=== PATIENT | female | born 1980 | race Caucasian/White ===

== ENCOUNTER 2018-07-12 20:22 | Observation (INO) ==
[2018-07-12] MEDS ORDERED: MAGNESIUM SULFATE IN WATER 50 ML IV ONE (20:31)
[2018-07-12] MEDS ORDERED: ALBUTEROL SULFATE/IPRATROPIUM 3 ML NEBU IH ONE (20:32)
--- NOTE | 2018-07-12 20:40 | ERNOTE ---
Dyspnea - Date Date of Service: 07/12/18 - General Presenting Symptoms: shortness of breath, wheezing Time Seen by Provider: 07/12/18 20:25 Source: patient - Immun/Allergies/Home Medications Immunizations: IMMUNIZATION HX Immunizations Up to Date No History of Influenza Vaccine No Hx Pneumococcal Vaccination No Allergies/Adverse Reactions: Allergies No Known Allergies Allergy (Verified 07/12/18 10:49) Home Medications: HOME MEDICATIONS Acetaminophen [Tylenol] 650 mg PO TID 06/01/18 [Last Taken Unknown] Cetirizine HCl [Zyrtec] 10 mg PO DAILY 06/01/18 [Last Taken Unknown] Levothyroxine Sodium [Synthroid] 25 mcg PO DAILY 06/01/18 [Last Taken Unknown] Albuterol Sulfate [Albuterol Sulfate 0.63 MG/3ML] 0.63 mg INHALATION Q4H PRN 07/12/18 [Last Taken Unknown] Azithromycin [Zithromax] 500 mg PO NOW #6 tab 07/12/18 [Last Taken Unknown] predniSONE [Prednisone] 50 mg PO DAILY 5 Days #5 tab 07/12/18 [Last Taken Unknown] - History of Present Illness Narrative: This is a 38-year-old female who presents to the emergency department for the second time today. Patient reports that she has a history of allergy induced asthma which started roughly 9 years ago. Is never had intubations. She says "I am allergic to everything except pollen and cats. "Patient went into a walk- in clinic this morning with coughing and difficulty breathing. Was found to be very tight and given steroids as well as breathing treatments. Was not getting better so was sent to the ER where she had an x-ray. She was sent home because she was feeling little bit better. Within an hour of getting home she started feeling tight again. No fever. No sputum production. No nausea or vomiting. No other complaints. She does have a little bit of chest tightness and discomfort from coughing. No pleuritic pain. No palpitations. Never felt this bad. No other complaints Review of Systems - Review of Systems Constitutional: Present: no symptoms reported EYE: Present: no symptoms reported ENT: Present: no symptoms reported Respiratory: Present: shortness of breath, cough, wheezing Cardiology: Present: no symptoms reported Gastrointestinal/Abdominal: Present: no symptoms reported Genitourinary: Present: no symptoms reported Musculoskeletal: Present: no symptoms reported Skin: Present: no symptoms reported Neurological: Present: no symptoms reported Endocrine: Present: no symptoms reported Hematologic/Lymphatic: Present: no symptoms reported Psych: Present: no symptoms reported All Other Systems: All systems neg except as marked Medical History (Updated 07/12/18 @ 20:52 by Lorenza Jimenez RN) H/O: hysterectomy [place] teeth extracted Asthma Surgical History: Surgical History (Updated 07/12/18 @ 20:52 by Lorenza Jimenez RN) History of appendectomy History of esophagogastroduodenoscopy (EGD) Hx of foot surgery L in 2018 Family History: Family History (Last Updated 07/12/18 @ 20:51 by Lorenza Jimenez RN) Mother Asthma Diabetes Hyperlipemia Hypertension Father Hypertension Hyperlipemia Social History: Preferred Language Algerian Smoking Status Never smoker Abuse History No History of abuse Psych History No pertinent hx (Last Updated 07/12/18 @ 12:12 by Ya Palmer DNP) No Social History Section defined Physical Exam - Physical Exam General Appearance: Present: wd/wn, alert, no apparent distress, other - Able to speak in full sentences Head Exam: Present: normal inspection, no evidence of injury Eye Exam: Normal inspection: bilateral, PERRL: bilateral Ears, Nose, Throat: Present: normal ENT inspection, normal pharynx Neck: Present: normal inspection Respiratory: Present: no respiratory distress, other - Diffuse wheezing, prolonged expiratory phase, occasional dry bronchitic cough. Wheezes are throughout Cardiovascular/Chest: Present: regular rate, rhythm, no murmur, normal peripheral pulses Gastrointestinal/Abdominal: Present: normal bowel sounds, nontender, nondistended, soft Back Exam: Present: normal inspection, no CVA tenderness Extremity Exam: Present: normal inspection, non-tender, normal range of motion, no edema Neurological Exam: Present: alert, oriented, normal mood/affect, no motor/sensory deficits Skin Exam: Present: normal color, warm/dry Lymphatic Exam: Present: no adenopathy Progress - Results and Orders Patient's Lab Results:: I have reviewed the patient's lab results. - Vital Signs Patient's Vital Signs:: I have reviewed the patient's vital signs. Plan - Plan Plan: This is a 38-year-old female with her second visit to the ER in the third visit to healthcare provider today who continues to have wheezing and dyspnea. Her steroids have not had 12 hours to work. She is still wheezing quite a bit although she is not significantly hypoxic. She is able to speak in full sentences. I think observing her in the hospital overnight would be appropriate. Going to continue on the steroids. First dose for next dose will be tomorrow. I am also to give some magnesium. I am going to perform a flu swab and a couple of basic labs. I have spoken to the hospital doctor about admitting overnight. Departure Clinical Impression: Asthma exacerbation Qualifiers: Asthma severity: moderate Asthma persistence: unspecified Qualified Code(s): J45.901 - Unspecified asthma with (acute) exacerbation - Departure Disposition: Still a patient Condition: Good
[2018-07-12] MEDS ORDERED: ALBUTEROL SULFATE/IPRATROPIUM 3 ML NEBU IH SCH (20:45)
[2018-07-12 20:47] LABS: Hematocrit 41.4 % (37.0-47.0); Hemoglobin 13.8 gm/dL (12.5-16.0); Mean Cell Volume 92.8 fl (78-100); Mean Corpuscular Hemoglobin 30.9 pg (27-31); Mean Corpuscular Hgb Conc 33.3 g/dl (32-36); Mean Platelet Volume 10.3 fl (8-12.5); Neutrophil # 6.4 K/mm3 (1.3-6.0); Neutrophil % 93.6 % (42-75.0); Platelet Count 274 K/mm3 (150-450); Red Blood Count 4.46 M/mm3 (4.2-5.4); Red Cell Distribution Width 12.5 % (11.5-14.0); White Blood Count 6.9 K/mm3 (4.0-10.5)
[2018-07-12 21:01] LABS: Albumin * 4.1 gm/dl (3.4-5.0); Anion Gap 19.3 mmol/L (6.8-13.8); BUN/Creatinine Ratio 13.4 (9.0-21.6); Bilirubin, Total 0.4 mg/dL (0.0-1.1); Ca. Corrected For Albumin 8.9 mg/dL (8.4-10.2); Calcium * 9.3 mg/dL (7.9-10.9); Carbon Dioxide 18.4 mmol/L (24-32.6); Potassium 3.7 mmol/L (3.4-4.6); Total Protein 7.7 gm/dL (6.2-8.2)
[2018-07-12] MEDS ORDERED: MAGNESIUM SULFATE 4 MEQ/ML VIAL IV ONE (21:20)
[2018-07-12] MEDS ORDERED: ALBUTEROL SULFATE/IPRATROPIUM 3 ML NEBU IH PRN (22:48)
[2018-07-13] MEDS: ALBUTEROL SULFATE/IPRATROPIUM 3 ML NEBU IH SCH ×3 (02:04→10:10)
[2018-07-13] MEDS ORDERED: ACETAMINOPHEN 500 MG TABLET PO PRN (08:00)
[2018-07-13] MEDS ORDERED: MONTELUKAST SODIUM 10 MG TABLET PO SCH (10:00)
--- NOTE | 2018-07-13 10:29 | HP ---
Chief Complaint - Chief Complaint Date of Service: 07/13/18 Time of Service: 10:29 Chief Complaint: Shortness of breath, cough wheezing History of Present Illness: 38-year-old female with history of seasonal allergy induced asthma presented to the ER due to worsening shortness of breath and wheezing. She had previously been seen by walk-in clinic and received a dose of steroids IM as well as given a breathing treatment. She later returned to the ER the same day and was given a breathing treatment and started on azithromycin. She returned to the ER early this morning with shortness of breath. She was placed in observation continued with joe macdonald, and monitored overnight. Her lab work was fairly unremarkable she was negative for influenza. When I saw her this morning she was ready to go home, her vital signs have been stable and she is maintaining sats between 94 to 97%. 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 Smoking Status Never smoker Have you smoked in the past 12 No months Do you dip or chew tobacco No Abuse History No History of abuse Psych History No pertinent hx Alcohol Use none Drug Use none (Last Updated 07/12/18 @ 12:12 by Ya Palmer DNP) No Social History Section defined Review Of Systems (GEN) - Review of Systems Generalized/Overall Review: Absent: Weakness, Chills, Fever EENTM: Present: No Symptoms Reported Respiratory: Present: Cough, Shortness of Breath, Wheezing Cardiac: Absent: Chest Pain, Edema, Palpitations Abdominal: Absent: Nausea, Vomiting, Abdominal Pain Genitourinary: Present: No Symptoms Reported Musculoskeletal: Present: No Symptoms Reported Neurological: Present: No Symptoms Reported Skin: Present: No Symptoms Reported Endocrine: Present: No Symptoms Reported Immunizations: IMMUNIZATION HX Immunizations Up to Date Yes History of Influenza Vaccine Yes Hx Pneumococcal Vaccination No Allergies/Adverse Reactions: Allergies Allergy/AdvReac Type Severity Reaction Status Date / Time No Known Allergies Allergy Verified 07/12/18 10:49 Home Medications: HOME MEDICATIONS Acetaminophen [Tylenol] 650 mg PO TID 06/01/18 [Last Taken Unknown] Cetirizine HCl [Zyrtec] 10 mg PO DAILY 06/01/18 [Last Taken Unknown] Levothyroxine Sodium [Synthroid] 25 mcg PO DAILY 06/01/18 [Last Taken Unknown] Albuterol Sulfate [Albuterol Sulfate 0.63 MG/3ML] 0.63 mg INHALATION Q4H PRN 07/12/18 [Last Taken Unknown] Azithromycin [Zithromax] 500 mg PO NOW #6 tab 07/12/18 [Last Taken Unknown] predniSONE [Prednisone] 50 mg PO DAILY 5 Days #5 tab 07/12/18 [Last Taken Unknown] Exam - Exam Vital Signs: Vital Signs - Last Taken Temp 36.8 C 07/13/18 06:52 Pulse 117 H 07/13/18 10:20 Resp 20 07/13/18 10:20 BP 104/56 07/13/18 06:52 Pulse Ox 97 07/13/18 10:10 Constitutional: Present: Alert, Oriented x3, Cooperative, Well developed ENT Exam: Present: pharynx normal. Absent: nasal drainage Eye Exam: bilateral eye: normal inspection Neck: Present: non-tender, supple. Absent: lymphadenopathy (R), lymphadenopathy (L) Respiratory: Present: rhonchi, wheezing - Diffuse bilaterally, end expiratory. Absent: respiratory distress, decreased breath sounds Cardiovascular/Chest: Present: normal peripheral pulses, no murmur, tachycardia Abdomen: Present: Normal bowel sounds, soft, nontender /Rectal: Present: Exam deferred Skin Exam: Present: normal color, warm/dry Appearance: Present: appropriate appearance, appropriate insight Eye contact: Present: cooperative, good eye contact Thoughts: Present: normal thought pattern, normal mood /affect Diagnostic Studies: Abnormal Lab Results 07/12/18 07/12/18 Range/Units 20:45 20:45 Neutrophils % 93.6 H (42-75.0) % Lymphocytes % 4.4 L (20-51) % Neutrophils # 6.4 H (1.3-6.0) K/mm3 Lymphocytes # 0.30 L (1.5-3.5) k/mm3 Sodium 143 H (132-142) mmol/L Plasma Sodium 145 H (130-142) mmol/L Chloride 109 H (97-106) mmol/L Carbon Dioxide 18.4 L (24-32.6) mmol/L Anion Gap 19.3 H (6.8-13.8) mmol/L Random Glucose 202 H (70-110) mg/dL Laboratory Results WBC 6.9 K/mm3 (4.0-10.5) 07/12/18 20:45 RBC 4.46 M/mm3 (4.2-5.4) 07/12/18 20:45 Hgb 13.8 gm/dL (12.5-16.0) 07/12/18 20:45 Hct 41.4 % (37.0-47.0) 07/12/18 20:45 MCV 92.8 fl (78-100) 07/12/18 20:45 MCH 30.9 pg (27-31) 07/12/18 20:45 MCHC 33.3 g/dl (32-36) 07/12/18 20:45 RDW 12.5 % (11.5-14.0) 07/12/18 20:45 Plt Count 274 K/mm3 (150-450) 07/12/18 20:45 MPV 10.3 fl (8-12.5) 07/12/18 20:45 Immature Gran % (Auto) 0.30 % (0.001-0.429) 07/12/18 20:45 Immature Gran # (Auto) 0.02 K/mm3 (0.000-0.0310) 07/12/18 20:45 93.6 % (42-75.0) H 07/12/18 20:45 4.4 % (20-51) L 07/12/18 20:45 1.5 % (0.0-9) 07/12/18 20:45 0.1 % (0.0-3.0) 07/12/18 20:45 0.1 % (0.0-1.0) 07/12/18 20:45 Nucleated RBC % 0.0 k/mm3 (0-1) 07/12/18 20:45 6.4 K/mm3 (1.3-6.0) H 07/12/18 20:45 0.30 k/mm3 (1.5-3.5) L 07/12/18 20:45 0.1 k/mm3 (0.0-1.0) 07/12/18 20:45 0.0 k/mm3 (0.0-0.7) 07/12/18 20:45 Absolute Basophils 0.0 k/mm3 (0.0-0.1) 07/12/18 20:45 Sodium 143 mmol/L (132-142) H 07/12/18 20:45 145 mmol/L (130-142) H 07/12/18 20:45 Potassium 3.7 mmol/L (3.4-4.6) 07/12/18 20:45 Chloride 109 mmol/L (97-106) H 07/12/18 20:45 Carbon Dioxide 18.4 mmol/L (24-32.6) L 07/12/18 20:45 19.3 mmol/L (6.8-13.8) H 07/12/18 20:45 BUN 11 mg/dL (3-23) 07/12/18 20:45 0.82 mg/dL (0.4-1.4) 07/12/18 20:45 Est GFR (Non-Af Amer) 84 mL/min (60-130) 07/12/18 20:45 13.4 (9.0-21.6) 07/12/18 20:45 202 mg/dL (70-110) H 07/12/18 20:45 Calcium 9.3 mg/dL (7.9-10.9) 07/12/18 20:45 Calcium Adj for Albumin 8.9 mg/dL (8.4-10.2) 07/12/18 20:45 0.4 mg/dL (0.0-1.1) 07/12/18 20:45 AST 17 U/L (0-48) 07/12/18 20:45 ALT 28 U/L (19-67) 07/12/18 20:45 83 U/L (50-170) 07/12/18 20:45 7.7 gm/dL (6.2-8.2) 07/12/18 20:45 4.1 gm/dl (3.4-5.0) 07/12/18 20:45 Influenza Type A Ag Negative (NEGATIVE) 07/12/18 20:44 Influenza Type B Ag Negative (NEGATIVE) 07/12/18 20:44 Assessment/Plan - Narrative Narrative: Patient states that she is doing better since being admitted from the ER. Her O2 saturation well. She states that she has a nebulizer at home for her albuterol. She was started on azithromycin and has prednisone which she has not taken today. We will start her on cuaQeair help with her allergies as well as her until her allergy season passes. She is ready to go home. Her vital signs been stable she has been afebrile. - Assessment/Plan (1) Seasonal allergies Problem: Acute (2) Asthma exacerbation Problem: Acute Qualifiers: Asthma severity: moderate Asthma persistence: unspecified Qualified Code(s): J45.901 - Unspecified asthma with (acute) exacerbation
--- NOTE | 2018-07-13 12:07 | DS ---
(1) Seasonal allergies Problem: Acute (2) Asthma exacerbation Problem: Acute Qualifiers: Asthma severity: moderate Asthma persistence: unspecified Qualified Code(s): J45.901 - Unspecified asthma with (acute) exacerbation Description of Stay: 38-year-old female with a history of seasonal allergies and allergy induced asthma was admitted to the for observation for shortness of breath, cough, wheezing. Patient received two duo neb treatments and monitored overnight. While here she has maintained appropriate oxygen saturations and wsa breathing easier prior to admission. She has been slightly tachycardic but I think this is due to the albuterol. We will start her on Singulair to help with both allergies as well as her asthma. Advised her to take prednisone today that she received as well as her next dose of the azithromycin which she agrees to do. She is feeling better, she was discharged home in stable condition. Will follow up with her PCP in the next 1 to 2 weeks. Procedures Performed: none Results and Findings: Lab Pending Results 07/12/18 20:44: Influenza Type A Ag Negative, Influenza Type B Ag Negative 07/12/18 20:45: WBC 6.9, RBC 4.46, Hgb 13.8, Hct 41.4, MCV 92.8, MCH 30.9, MCHC 33.3, RDW 12.5, Plt Count 274, MPV 10.3, Immature Gran % (Auto) 0.30, Immature Gran # (Auto) 0.02, Neutrophils % 93.6 H, Lymphocytes % 4.4 L, Monocytes % 1.5, Eosinophils % 0.1, Basophils % 0.1, Nucleated RBC % 0.0, Neutrophils # 6.4 H, Lymphocytes # 0.30 L, Monocytes # 0.1, Eosinophils # 0.0, Absolute Basophils 0.0 07/12/18 20:45: Sodium 143 H, Plasma Sodium 145 H, Potassium 3.7, Chloride 109 H, Carbon Dioxide 18.4 L, Anion Gap 19.3 H, BUN 11, Creatinine 0.82, Est GFR (Non-Af Amer) 84, BUN/Creatinine Ratio 13.4, Random Glucose 202 H, Calcium 9.3, Calcium Adj for Albumin 8.9, Total Bilirubin 0.4, AST 17, ALT 28, Alkaline Phosphatase 83, Total Protein 7.7, Albumin 4.1 Discharge Location: Home Disposition: Home self-care Condition: Good Discharge Activity: Activity as tolerated Discharge Diet: General/regular food Referrals: Katharina Irwin CNP [Primary Care Provider] - Two Weeks Prescriptions (Any new or edited meds): Montelukast Sodium [Singulair] 10 mg PO DAILY #30 tab Complete Home Medications List: Complete Home Medication List: Acetaminophen [Tylenol] 650 mg PO TID 06/01/18 Cetirizine HCl [Zyrtec] 10 mg PO DAILY 06/01/18 Levothyroxine Sodium [Synthroid] 25 mcg PO DAILY 06/01/18 Albuterol Sulfate [Albuterol Sulfate 0.63 MG/3ML] 0.63 mg INHALATION Q4H PRN 07/12/18 Azithromycin [Zithromax] 500 mg PO NOW #6 tab 07/12/18 predniSONE [Prednisone] 50 mg PO DAILY 5 Days #5 tab 07/12/18 Montelukast Sodium [Singulair] 10 mg PO DAILY #30 tab 07/13/18
[2018-07-13 13:07] VITALS: BP 118/65
[2018-07-14] MEDS ORDERED: LEVOTHYROXINE SODIUM 25 MCG TABLET PO SCH (09:00)
== END 2018-07-13 13:30 | disposition home or self-care (01) ==
LOC: MS 20:22 → ER 20:22 → MS 21:15
PROVIDERS: ADMIT Family Medicine; ATTEND Family Medicine
CPT/HCPCS: 36415; 80053; 85025; 87400; 87449; 94640; 94664; 99285; G0378